=== PATIENT | female | born 1985 | race Caucasian/White ===

== ENCOUNTER 2017-01-30 07:52 | Emergency (ER) | payer OTHER ==
[2017-01-30] MEDS ORDERED: SULFAMETHOXAZOLE/TRIMETHOPRIM 1 EACH TABLET PO ONE (08:25)
[2017-01-30 08:32] VITALS: BP 118/84
--- NOTE | 2017-01-30 09:44 | ED Physician Documentation ---
Sore Throat/Dental Pain - HISTORIAN Historian: patient - HPI Stated Complaint: ST Chief Complaint: Sore Throat Additional Information: x 5 days Onset: days ago (5) Context: Possible Infection Associated Symptoms: chills, sore throat, cough Worsened By: nothing Further Comments: no - ROS CONST: no problems CVS/RESP: none GI/: denies: problems urinating, nausea, vomiting MS/SKIN/LYMPH: denies: muscle aches, rash, leg swelling, ankle swelling NEURO/PSYCH: none - PAST HX Past History: none Other History: none Immunizations: referred to PCP Allergies/Adverse Reactions: Allergies Allergy/AdvReac Type Severity Reaction Status Date / Time No Known Allergies Allergy Verified 01/30/17 08:12 Home Medications: Ambulatory Orders Medication Instructions Recorded NK [NK] 01/30/17 - SOCIAL HX Smoking History: non-smoker Alcohol Use: occasionally Drug Use: none - FAMILY HX Family History: Yes - VITAL SIGNS Vital Signs: Vital Signs Temp Pulse Resp BP Pulse Ox 99.3 F 95 H 18 118/84 97 01/30/17 07:52 01/30/17 08:31 01/30/17 08:31 01/30/17 08:31 01/30/17 07:52 - REVIEWED ASSESSMENTS Nursing Assessment Reviewed: Yes Vitals Reviewed: Yes Progress - Results/Orders Results/Orders: strep screen ordered - Progress Progress: pt. given bactrim DS p.o. in er Critical Care Note - Critical Care Note Total Time (mins): 0 ED Results Lab/Radiology - Lab Results Lab Results: Lab Results 01/30/17 08:45 Group A Strep Screen Positive H (NEGATIVE) - Radiology Radiology Impressions: none ordered - Orders Orders: ED Orders Category Date Time Status Rapid Strep [GRP A STREP SCREEN] Stat Lab 01/30/17 08:45 Completed Sulfamethoxazole/Trimethoprim [Bactrim Ds] Med 01/30/17 08:25 Discontinued 1 each PO NOW ONE Sore throat Physical Exam - EXAM General Appearance: alert, moderate distress Head/Neck: trachea midline, no lymphadenopathy, thyroid nml. No: pain over sinuses Eyes: eyes nml inspection, PERRL Mouth/Throat: lips nml, gums nml, pharyngeal erythema, tonsillar swelling, muffled voice Ear/Nose: TM erythema Respiratory: no resp. distress, decreased air entry CVS: reg. rate & rhythm, other Abdomen: soft, no organomegaly, normal bowel sounds Extremities: non-tender, nml ROM Skin: warm/dry, normal color Neuro/Psych: oriented x3, mood/affect nml Discharge Clincal Impression: Strep pharyngitis Referrals: Primary Doctor,No [Primary Care Provider] - 2 Days Home Medications: Ambulatory Orders NK [NK] 01/30/17 Comments: discharged with script for bactrim ds 1 p.o. bid x 10 days Condition: Stable Disposition: 01 HOME, SELF-CARE Decision to Admit: NO Decision Time: 08:30
== END 2017-01-30 08:31 | disposition home or self-care (01) ==
LOC: EDBD 07:52 → ED 07:52
DX: J02.0 Streptococcal pharyngitis (principal)
CPT/HCPCS: 87880; 99283